=== PATIENT | male | born 1965 | race Caucasian/White ===

== ENCOUNTER → 2019-02-01 12:44 | Outpatient (CLI) | payer BC, SELFPAY ==
--- NOTE | 2019-02-01 12:50 | CA_ITS ---
PROCEDURE: 2-D M-mode and color Doppler study INDICATIONS FOR THE TEST: Chest pain COPD Heart Murmur Tobacco Smoking Palpitations Fatigue Syncope Edema Hypertension+Diabetes Mellitus Rheumatic Fever SOB+RENEE Obesity Hyperlipidemia Family History HD+ Additional History PACER,SSS PATIENT INFORMATION HEIGHT: 67 WEIGHT:192 GENDER: Male B/P:114/76 2-D/M-MODE INTERPRETATION: 2-D MEASUREMENTS OBSERVED VALUES IN CMS Right Ventricular Dimension (RVDd) 2.0 Interventricular Septum (Thickness)(IVsd) 1.3 Left Ventricular Internal Dimensions(LVIDd) 5.2 Left Ventricular Posterior Wall (Thickness)(LVPWd) 0.9 Aortic Root 3.8 Aortic Cusp Separation 2.2 Left Atrial Dimensions (LAD) 3.2 2D 1. Left atrium is mildly enlarged, left ventricle is normal size, mild concentric ventricular hypertrophy, visually estimated ejection fraction 45-50% with abnormal septal motion. 2. The right atrium and right ventricle are normal size and contractility, there is a pacemaker lead seen right atrium and right ventricle. 3. The aortic valve is minimally thickened and calcified. 4. The mitral and tricuspid valvular grossly normal. 5. The pulmonic valve is poorly visualized. 6. No significant pericardial effusion noted. DOPPLER INTERROGATION: Doppler interrogation of the aortic, mitral and tricuspid valvular presence of mild mitral and tricuspid regurgitation, tricuspid regurgitation jet velocity is inadequate for calculation of the right ventricular systolic pressure, grade 1 diastolic dysfunction seen with tissue Doppler evidence of raised left atrial pressure. CONCLUSION: 1. Mildly enlarged left atrium, normal left ventricular size, mild concentric left ventricular hypertrophy, visually estimated ejection fraction of 45-50% with abnormal septal motion, grade 1 diastolic dysfunction seen with tissue Doppler evidence of raised left atrial pressure. 2. Mild mitral and tricuspid regurgitation 3. No significant pericardial effusion noted.
== END ==
PROVIDERS: Visit Provider Internal Medicine
DX: R06.09 Other forms of dyspnea (principal); R94.31 Abnormal electrocardiogram [ECG] [EKG]; E03.9 Hypothyroidism, unspecified; I10 Essential (primary) hypertension; R60.9 Edema, unspecified; Z82.49 Family history of ischemic heart disease and other diseases of the circulatory system; Z95.0 Presence of cardiac pacemaker
CPT/HCPCS: 93306

== ENCOUNTER → 2019-12-12 07:02 | Outpatient (CLI) | payer BC, SELFPAY ==
--- NOTE | 2019-12-12 07:04 | CA_ITS ---
APPROVED REPORT Exam: Pharmacologic Technologist: Liana Partida Ht: 5 ft 7 in Wt: 185 lbs BSA: 1.96 m2 HR: 63 bpm BP: 111/68 mmHg Indications: Shortness of Air Medical History Medications: Levothyroxine,,,,, Furosemide (LASIX),,,,, Losartan,,,,, Albuterol,,,,, PaROXETINE,,,,, Nitroglycerin,,,,, Stress Test Details Test: LEXISCAN HR Resting HR: 65 bpm Max Heart Rate (APMHR): 167 bpm Max HR Achieved: 95 bpm Target HR (85% APMHR): 141 bpm % of APMHR: 56 Recovery HR: 69 bpm BP Resting BP: 111.0/68.0 mmHg Max BP: 118.0/60.0 mmHg Recovery BP: 118.0/60.0 mmHg ECG Clinical Exercise duration: 04:00 min Highest Stage Achieved: Stress ECG Conclusion Resting ECG: Paced ventricular rhythm, PVC Symptoms: Mild malaise. No chest pain. Arrhythmias/Ectopy: Occasional PVC ST-T Changes: No significant changes Conclusion: Unremarkable Lexiscan stress. [place] images reported separeately. Electronically signed by : Jasson Samson, 12/12/2019 21:12:47
--- NOTE | 2019-12-12 07:04 | NM_ITS ---
APPROVED REPORT Exam: Nuclear Stress Test Indication: Chest pain, SOB, Fatigue, Hx of [place], HTN, Family history Patient Location: Outpatient Stress Tech: Liana Partida [place] Tech:Sherlyn Flynn ADAMVenancio RT (R)(N)(M) Ht: 5 ft 7 in Wt: 185 lbs HR: 63 bpm BP: 111/68 mmHg BSA: 1.96 m2 BMI: 28.9 History: Chest pain, SOB, Fatigue, Hx of [place], HTN, Family history Procedure: Patient received a 0.4 mg of intravenous Lexiscan, resting heart rate 63 bpm, resting blood pressure 111/68 mmHg, with Lexiscan maximum heart rate achived was 92 bpm which is Less than 85 % of the maximum predicted heart rate and blood pressure was 107/52 mmHg. With Lexiscan, patient denied any complaint of chest pain. Electrocardiogram Resting electrocardiogram showed electronically paced rhythm, with Lexiscan there is less than 1.[address] segment depression noted from the baseline EKG. The EKG portion of the Lexiscan Myoview is nondiagnostic. Cardiac Stress and Resting SPECT Images: Cardiac Stress and Resting SPECT images were obtained using technetium 99m Myoview 31.2 mCi stress and 9.97 mCi at rest. Gated SPECT with analysis of segmental wall motion and calculation of the ejection fraction also done. Cardiac stress and resting SPECT images show a mild fixed defect in the inferior wall with normal contracted gated SPECT is likely secondary to soft tissue attenuation, no reversible ischemia seen. Computer derived ejection fraction 53% with no regional wall motion abnormality, right ventricle is normal size and contractility. Conclusion: 1. The EKG portion of the Lexiscan Myoview is nondiagnostic. 2. No scintigraphic evidence of reversible ischemia seen, computer derived ejection fraction of 53% with no regional wall motion abnormality, right ventricle is normal size and contractility. 3. Normal Lexiscan Myoview study. Electronically signed by : Jasson Samson, 12/12/2019 21:26:35
--- NOTE | 2019-12-12 08:50 | HMH.ITSHM ---
Current Home Medications as stated by this patient Jens Sutherland or financial services representative. []levothyroxine losartan paroxetine furosemide nitro inhailor
== END ==
PROVIDERS: PCP Nurse Practitioner Family; Visit Provider Physician Assistant
DX: R07.9 Chest pain, unspecified (principal); R06.09 Other forms of dyspnea; I10 Essential (primary) hypertension; Z82.49 Family history of ischemic heart disease and other diseases of the circulatory system
CPT/HCPCS: 78452; 93017; A9502; J2785